=== PATIENT | male | born 1960 | race Two or more races ===

== ENCOUNTER → 2022-04-14 | Outpatient (CLI) | payer OTHER | END | disposition home or self-care (01) | LOC: TOM 07:29 | PROVIDERS: ATTEND Surgery Plastic and Reconstructive Surgery | DX: C61 Malignant neoplasm of prostate (principal) ==

== ENCOUNTER 2022-08-06 08:17 | Outpatient (CLI) | payer OTHER | END 2022-08-06 08:27 | disposition home or self-care (01) | LOC: LAB 08:17 | PROVIDERS: ATTEND Surgery Plastic and Reconstructive Surgery | DX: C61 Malignant neoplasm of prostate (principal); D68.9 Coagulation defect, unspecified; R05.8 Other specified cough ==

== ENCOUNTER 2022-08-11 08:30 | Inpatient (IN) | payer OTHER ==
[~2022-08-11] VITALS: Ht 177.8 cm; Wt 67.6 kg
[2022-08-11] MEDS ORDERED: GEMFIBROZIL600 MG PO (10:48)
[2022-08-11] MEDS ORDERED: VERAPAM PO (10:49)
[2022-08-11] MEDS ORDERED: SIMVAST PO (10:49)
[2022-08-11] MEDS ORDERED: FOSINOPRIL-HCT1 EACH PO (10:50)
[2022-08-15] MEDS ORDERED: VERAPAMIL SR120 MG (07:55)
[2022-08-15] MEDS ORDERED: SIMVASTATIN10 MG (07:56)
== END 2022-08-17 11:22 | disposition home or self-care (01) | DRG 708 ==
LOC: SURH 08-15 07:00 → SURG 08-15 07:33 → O/R 08-15 07:33 → SURH 08-15 08:30 → SURG 08-15 12:23
PROVIDERS: ADMIT Urology; ATTEND Urology
PROC: 07BC0ZX Excision of Pelvis Lymphatic, Open Approach, Diagnostic (ICD-10-PCS; 2022-08-15)
PROC: 0VT00ZZ Resection of Prostate, Open Approach (ICD-10-PCS; principal; 2022-08-15 07:00)
DX: C61 Malignant neoplasm of prostate (principal)

== ENCOUNTER → 2022-12-17 | Emergency (ER) | payer OTHER ==
[~2022-12-17] VITALS: Ht 177.8 cm; Wt 65.3 kg
[~2022-12-17] MED LIST: FOSINOPRIL-HCT1 EACH PO; GEMFIBROZIL600 MG PO; PEPCID20 MG PO; SIMVAST PO; SIMVASTATIN10 MG; VERAPAM PO; VERAPAMIL SR120 MG; ZOFRAN8 MG PO
[2022-12-17 14:09] LABS: HEMATOCRIT 44.1 % (39.0-48.0); HEMOGLOBIN 14.7 g/dL (13-16.00); MEAN CELL VOLUME 89.7 fL (80.0-100.00); MEAN CORPUSCULAR HEMOGLOBIN 29.8 pg (27.00-32.0); MEAN CORPUSCULAR HGB CONC 33.3 g/dl (32.0-36.0); PLATELET COUNT 207 K/uL (150-450); RED BLOOD COUNT 4.91 M/uL (4.00-6.00); RED CELL DISTRIBUTION WIDTH 14.6 % (11.5-14.5)
[2022-12-17 14:29] LABS: CALCIUM 9.2 mg/dL (8.5-10.1); CREATININE SERUM 0.92 mg/dL (0.70-1.30); GFR 83.92; POTASSIUM 4.21 mEq/L (3.5-5.1)
[2022-12-17 18:18] LABS: PH,URINE 7.5 (5.0-8.0); URINE APPEARANCE Clear; URINE BILIRRUBIN Negative (NEGATIVE); URINE BLOOD Negative; URINE COLOR Yellow; URINE GLUCOSE Negative (NEGATIVE); URINE LEUKOCYTE Negative; URINE NITRATE Negative; URINE PROTEIN Negative (NEGATIVE); URINE UROBILINOGEN 0.2 E.U./dl
[2022-12-17 18:22] LABS: URINE BACTERIA 6.2 uL (0.0-1933); URINE EPITHELIAL CELLS 1.6 uL (0.0-38.8); URINE WBC 2.6 uL (0.0-23.2)
== END | disposition home or self-care (01) ==
LOC: ER 11:59
PROVIDERS: General Practice
DX: K29.70 Gastritis, unspecified, without bleeding (principal); R10.9 Unspecified abdominal pain; I10 Essential (primary) hypertension; H91.8X9 Other specified hearing loss, unspecified ear; K57.30 Diverticulosis of large intestine without perforation or abscess without bleeding; K40.90 Unilateral inguinal hernia, without obstruction or gangrene, not specified as recurrent; D35.02 Benign neoplasm of left adrenal gland; N20.0 Calculus of kidney